=== PATIENT | male | born 1955 | race Caucasian/White ===

== ENCOUNTER 2017-07-03 12:34 | Inpatient (IN) | payer BC ==
[~2017-07-03] VITALS: Ht 177.8 cm; Wt 84.4 kg
--- NOTE | ~2017-07-03 | HC ---
[facility] [place] [address] CONSULTATION Name: ERLIN ANGELES Room #: 349-I [facility] IN ..#: [id number] Admission: 07/03/17 Attend Phys: Fany Mejía MD Discharge: 07/05/17 Date of : 55 Report #: [id number] THIS REPORT FOR: //name// CC: Kushal Mejía DATE OF SERVICE: 07/03/2017 HISTORY OF PRESENT ILLNESS: This is a 62-year-old male patient was evaluated by me for stroke. This patient's symptoms started yesterday morning. It was speech difficulty as well as weakness on the right side. They did not change much, but he did not become better and he came to the hospital. He continued to have the same problem. The symptoms are at least moderately severe. They do not fluctuate and nothing makes them better or worse. They came spontaneously without any trauma. REVIEW OF SYSTEMS: Indicate that this patient does have a pacemaker. He denies any prior history of a stroke. He was dragging his leg when this happened. He does have a history of cardiac stent placed in the past, but apparently does not have any prior history of strokes. He does have some high blood pressure for which he is taking his medication. He also has cholesterol problem, but was not any more specific than that. That was his relevant 14-point review of system. PAST MEDICAL HISTORY: Negative for any early age stroke. FAMILY HISTORY: Negative for any early age stroke. SOCIAL HISTORY: He smokes and drinks alcohol. In fact, he drinks significant amount of alcohol and smoke daily. PHYSICAL EXAMINATION: Indicate he is alert, he is responsive, he is oriented. His speech is slurred. He believes his memory and fund of knowledge is at his baseline. Cranial nerve examination 2-12 is unremarkable. He does have some weakness on the right side, but he said this going on since yesterday. There is no meningeal sign. There is no carotid bruit. I could not look at the patient's fundus. There is no edema, cyanosis or jaundice. His cardiac examinations appear mostly unremarkable. He does have some rhonchi on both sides, but no respiratory difficulty. His blood pressure is 163/74, respiration is 16, pulse is 75. LABORATORY DATA: His hemoglobin is 18.3 and his BUN and creatinine is normal. His LDL is 97. IMPRESSION: This patient's clinical presentation is consistent with left hemispheric cerebrovascular accident. It will be difficult to confirm the diagnosis as we cannot do MRI because of his pacemaker. He has significant [address] [address] CONSULTATION Name: ERLIN ANGELES Room #: 349-I [facility] IN ..#: [id number] Admission: 07/03/17 Attend Phys: Fany Mejía MD Discharge: 07/05/17 Date of : 55 Report #: [id number] problem with alcohol drinking and smoking and I expect him to withdrawal. He also has multiple other things which will complicate the issues. His hemoglobin is 18.3, so he may need some more management of that. His hematocrit is 15.7. His platelet count is trace low at 149, but I think we should be okay with that. RECOMMENDATIONS: I had a long talk with this patient. I discussed with him that he needs to stop drinking alcohol and smoking. I talked to the Emergency Room physician and suggested a banana bag and this patient should also be on lookout for withdrawal. He does need an echocardiogram because of his history of heart problems as well as what appeared to be stroke now. We will check his TSH and B12 level in this patient. He should be on aspirin and statin and they should start any feeding only after documenting that there is no swallowing difficulty. All of it was discussed with the patient in great detail. He is agreeable with this plan. Thank you very much for this referral. <ELECTRONICALLY SIGNED> By: Javid Rodriguez MD 07/05/17 1348 1806 2213 Javid Rodriguez MD /nt
--- NOTE | ~2017-07-03 | EKG ---
[place] [address] [facility] [place] [address] ELECTROCARDIOGRAM REPORT Name: ERLIN ANGELES Room #: 349-I ADM IN M.R.#: [id number] Admission: 07/03/17 Attend Phys: Fany Mejía MD Discharge: Date of : 55 Report #: [id number] THIS REPORT FOR: //name// [facility] ED Test Date: 2017-07-03 Test Time: 12:48:32 Pat Name: ERLIN ANGELES Department: Room: 349 Gender: M Olive Brine Tester: BASSEM : 1955 Requested By: Bibi Mcmillan Order Number: [id number] MD: Nabor Young Measurements Intervals [place] Rate: 69 P: 18 MS: 318 QRS: -65 QRSD: 174 T: 108 QT: 452 QTc: 485 Interpretive Statements Atrial-sensed ventricular-paced complexes No further analysis attempted due to paced rhythm Compared to ECG 07/03/2013 07:44:18 Ventricular pacing is now present Electronically Signed On 07-04-2017 8:32:46 HOME CHILD CARE PROVIDER by Nabor Young [email or web address] <ELECTRONICALLY SIGNED> By: Nabor Young MD, [facility] 07/04/17 0832 1248 1248 Nabor Young MD, [facility] /EPI
--- NOTE | ~2017-07-03 | 2DMMODE ---
[facility] [address] [place] [address] 2 D/M-MODE ECHOCARDIOGRAM Name: ERLIN ANGELES Room #: 349-I ADM IN ..#: [id number] Admission: 07/03/17 Attend Phys: Fany Mejía Discharge: Date of : 55 Date of Service: 07/04/17 1609 Report #: [id number] THIS REPORT FOR: //name// APPROVED REPORT Study performed: 07/04/2017 11:51:58 EXAM: Comprehensive 2D, Doppler, and color-flow Echocardiogram Patient Location: Bedside Room #: 349 Status: routine BSA: 2.02 HR: 65 bpm BP: 132/70 mmHg Other Information Study Quality: Adequate Indications COPD CVA/TIA Pacemaker CAD Hypertension/HDD Echo Enhancing Agent Indication: Rule out Shunt Agent(s) / Amount(s) Used: Agitated Saline 7 cc 2D Dimensions LVOT Diam: 19.94 (18-24mm) Ascending Ao: 25.67 (22-36mm) Aortic Root: 30.16 mm IVC: 20.00 mm Volumes Left Atrial Volume (Systole) Single Plane 4CH: 61.31 mL Single Plane 2CH: 60.23 mL LA ESV Index: 33.00 mL/m2 Aortic Valve AoV Peak Oniel.: 2.41 m/s AO Peak Gr.: 18.35 mmHg LVOT Max P.83 mmHg AO Mean Gr.: 12.95 mmHg LVOT Mean P.17 mmHg AO V2 Mean: 1.69 m/s LVOT Max V: 1.18 m/s AO V2 VTI: 44.44 cm LVOT Mean V: 0.83 m/s [facility] [address] [place] [address] 2 D/M-MODE ECHOCARDIOGRAM Name: ERLIN ANGELES Room #: 349-I [facility] IN [facility].#: [id number] Admission: 07/03/17 Attend Phys: Fany Mejía Discharge: Date of : 55 Date of Service: 07/04/17 1609 Report #: [id number] CAMILLE (VTI): 1.53 cm2 LVOT V1 VTI: 21.81 cm CAMILLE Vmax: 1.53 cm2 SV (LVOT): 68.05 mL Mitral Valve E/A Ratio: 0.7 MV Decel. Time: 321.54 ms MV E Max Oniel.: 0.73 m/s MV A Oniel.: 1.04 m/s MV PHT: 93.25 ms IVRT: 133.79 ms Pulmonary Valve PV Peak Oniel.: 1.18 m/s PV Peak Gr.: 5.59 mmHg Tricuspid Valve TR Peak Oniel.: 2.49 m/s TR Peak Gr.: 24.77 mmHg PA Pressure: 35.00 mmHg Left Ventricle The left ventricle is normal size. There is normal LV segmental wall motion. There is normal left ventricular wall thickness. The left ventricular systolic function is normal. The left ventricular ejection fraction is within the normal range. LVEF is 60-65%. Grade I - abnormal relaxation pattern. Right Ventricle The right ventricle is normal size. The right ventricular systolic function is normal. Pacemaker lead is present in the right ventricle. Atria Left atrium is at the upper limits of normal. No shunting seen by contrast bubble injection Right atrium is dilated. Pacemaker lead is present in the right atrium. Aortic Valve Aortic valve is calcified. No aortic regurgitation is present. Mild aortic stenosis. Calculated aortic valve area is 1.7 cm2 with maximum pressure gradient of 23 mmHg and mean pressure gradient of 13 mmHg. Mitral Valve Moderate mitral annular calcification. Trace to mild mitral regurgitation. No evidence of mitral valve stenosis. [facility] [address] [place] [address] 2 D/M-MODE ECHOCARDIOGRAM Name: ERLIN ANGELES Room #: 349-I [facility] IN [facility]#: [id number] Admission: 07/03/17 Attend Phys: Fany Mejía Discharge: Date of : 55 Date of Service: 07/04/17 1609 Report #: [id number] Tricuspid Valve The tricuspid valve is normal in structure. There is trace tricuspid regurgitation.Estimated PAP 35 mmHg. There is mild pulmonary hypertension. Pulmonic Valve The pulmonary valve is normal in structure. There is no pulmonic valvular regurgitation. Great Vessels The aortic root is normal in size. IVC is dilated and collapses >50% with inspiration. Pericardium There is no pericardial effusion. <Conclusion> The left ventricular systolic function is normal. LVEF is 60-65%. Grade I - abnormal relaxation pattern. Aortic valve is calcified, mildly stenotic Calculated aortic valve area 1.7 cm2 with maximum pressure gradient of 23 mmHg and mean pressure gradient of 13 mmHg. Moderate mitral annular calcification. Trace to mild mitral regurgitation. Pulmonary artery pressure of 35mmHg There is no pericardial effusion. <ELECTRONICALLY SIGNED> By: Nabor Young MD, FACC 07/04/17 1609 160 160 Nabor Young MD, FACC /INF
[~2017-07-03 12:34] MED LIST: ASPIRIN81 M2; KEFLEX500 MG PO; NITROGLYCERIN0.4 MG; PAIN & FEVER325 MG PO; PERCOCET 5-3251 EACH PO; VENTOLIN HFA INH8 GM
[2017-07-03 12:37] VITALS: BP 165/98
[2017-07-03 13:43] LABS: BASOPHILS 0.4 % (0.0-2.0); EOSINOPHILS 0.2 % (0.0-3.0); HEMATOCRIT 52.7 % (42.0-52.0); HEMOGLOBIN 18.3 gm/dL (14.0-18.0); LYMPHOCYTES 25.1 % (24.0-44.0); MANUAL DIFF NO; MCH 31.4 pg (26.0-34.0); MCHC 34.6 g/dL (28.0-37.0); MCV 90.6 fL (80.0-100.0); MONOCYTES 5.4 % (1.0-8.0); PLATELET COUNT 149 thou/uL (150-400); POLYS 68.9 % (36.0-66.0); RBC 5.82 mil/uL (4.50-6.00); RDW 13.7 % (10.5-14.5); WBC 8.8 thou/uL (4.0-11.0)
[2017-07-03 13:46] LABS: ANION GAP 10 mmol/L (7-16); BUN 8 mg/dL (7-18); CALCIUM 9.5 mg/dL (8.5-10.1); CHLORIDE 99 mmol/L (98-107); CO2 25 mmol/L (21-32); CREATININE 0.8 mg/dL (0.7-1.3); GLUCOSE 129 mg/dL (74-106); POTASSIUM 4.3 mmol/L (3.5-5.1); SODIUM 134 mmol/L (136-145)
[2017-07-03 13:52] LABS: URINE BILIRUBIN NEGATIVE (Negative); URINE BLOOD NEGATIVE (Negative); URINE COLOR YELLOW; URINE GLUCOSE-RANDOM* NEGATIVE (Negative); URINE KETONES NEGATIVE (Negative); URINE NITRITE NEGATIVE (Negative); URINE PROTEIN (DIPSTICK) NEGATIVE (Negative); URINE SPECIFIC GRAVITY <= 1.005 (1.005-1.035); URINE UROBILINOGEN 0.2 E.U./dl (0.2-1.0)
[2017-07-03 13:55] LABS: ALBUMIN 3.8 g/dL (3.4-5.0); ALKALINE PHOSPHATASE 49 U/L (46-116); SGOT 34 U/L (15-37); SGPT 35 U/L (30-65); TOTAL BILIRUBIN 0.5 mg/dL (<0.1-1.0); TOTAL PROTEIN 7.7 g/dL (6.4-8.2); TROPONIN-I < 0.04 ng/mL (<0.06)
[2017-07-03 13:57] LABS: INR 1.1; PROTIME 11.6 Seconds (9.3-11.4)
[2017-07-03 15:05] VITALS: BP 145/81
[2017-07-03 17:07] LABS: CHOLESTEROL 195 mg/dL (<200); HDL CHOLESTEROL 84 mg/dL (>40); LDL CHOLESTEROL 97 mg/dL (<100); TC:HDL 2.3 Ratio (Not establshd); TRIGLYCERIDE 70 mg/dL (<150); VLDL 14 mg/dL (<40)
[2017-07-03 19:20] VITALS: BP 166/83
[2017-07-03 20:00] VITALS: BP 157/71
[2017-07-03] MEDS ORDERED: OXYCODONE-ACET1 EAC2 PO (23:07)
[2017-07-04 00:05] VITALS: BP 133/74
[2017-07-04 04:21] VITALS: BP 154/84
[2017-07-04 06:37] LABS: HEMATOCRIT 50.7 % (42.0-52.0); HEMOGLOBIN 17.4 gm/dL (14.0-18.0); MCH 31.3 pg (26.0-34.0); MCHC 34.3 g/dL (28.0-37.0); MCV 91.1 fL (80.0-100.0); RBC 5.57 mil/uL (4.50-6.00); RDW 13.4 % (10.5-14.5); WBC 10.1 thou/uL (4.0-11.0)
[2017-07-04 06:48] LABS: CALCIUM 9.7 mg/dL (8.5-10.1); CREATININE 0.7 mg/dL (0.7-1.3); POTASSIUM 4.6 mmol/L (3.5-5.1)
[2017-07-04 08:00] VITALS: BP 132/70
[2017-07-04 12:00] VITALS: BP 142/73
[2017-07-04 16:00] VITALS: BP 155/72
[2017-07-04 19:30] VITALS: BP 140/63
[2017-07-05 03:45] VITALS: BP 136/78
[2017-07-05 07:39] VITALS: BP 155/79
[2017-07-05] MEDS ORDERED: LIPITOR10 MG PO (09:16)
[2017-07-05] MEDS ORDERED: LISINOPRIL10 MG PO (09:17)
[2017-07-05] MEDS ORDERED: ADULT LOW DOSE81 MG PO (09:17)
[2017-07-05 10:01] VITALS: BP 155/79
== END 2017-07-05 11:43 | disposition home or self-care (01) | DRG 65 ==
LOC: ER 12:34 → EROBS 15:43 → 3W 15:43 → ENTRNSPT 07-05 11:24 → EDTRNSPTSTS 07-05 11:30 → 3W 07-05 11:43
PROVIDERS: Internal Medicine; Nurse Practitioner Family
DX: I63.9 Cerebral infarction, unspecified (principal); F10.239 Alcohol dependence with withdrawal, unspecified; I10 Essential (primary) hypertension; F17.210 Nicotine dependence, cigarettes, uncomplicated; F32.9 Major depressive disorder, single episode, unspecified; J44.9 Chronic obstructive pulmonary disease, unspecified; I25.10 Atherosclerotic heart disease of native coronary artery without angina pectoris; Z79.82 Long term (current) use of aspirin; Z79.899 Other long term (current) drug therapy; Z95.5 Presence of coronary angioplasty implant and graft
CPT/HCPCS: 10879

== ENCOUNTER → 2018-07-31 | Outpatient (CLI) | payer BC ==
[~2018-07-31] MED LIST changes: +ADULT LOW DOSE81 MG PO; +ASPIR 8181 MG PO; +CYCLOBENZAPRINE5 MG PO; +LIPITOR10 MG PO; +LISINOPRIL10 MG PO; +NEURONTIN 300300 M1 PO; +NITROGLYCERIN0.4 MG SUBLING; +OXYCODONE-ACET1 EAC2 PO; +PLAVIX 75 MG TA75 M1 PO; +TOPROL XL50 MG PO; +UNICOMPLEX M TA1 TA1 PO; +VENTOLIN HFA 1818 GM INH; +XANAX 0.5 MG0.5 MG PO
--- NOTE | 2018-07-31 13:58 | EKG ---
[address] [address] ELECTROCARDIOGRAM REPORT Name: ERLIN ANGELES Room #: REG CL Nayeli#: [id number] Admission: 07/31/18 Attend Phys: Contreras Seymour MD Discharge: Date of : 55 Report #: [id number] THIS REPORT FOR: //name// [facility] Test Date: 2018-07-31 Test Time: 10:22:52 Pat Name: ERLIN ANGELES Department: Room: Gender: M Embedded Linux Engineer: TIA BAILEY : 1955 Requested By: Contreras Seymour Order Number: [id number] MD: Andre David Measurements Intervals [place] Rate: 62 P: -46 MO: 317 QRS: -67 QRSD: 171 T: 114 QT: 470 QTc: 478 Interpretive Statements Atrial-sensed ventricular-paced rhythm No further analysis attempted due to paced rhythm Compared to ECG 07/03/2017 12:48:32 No significant changes Electronically Signed On 07-31-2018 13:58:13 PAYROLL ANALYST by Andre David [email or web address] <ELECTRONICALLY SIGNED> By: Andre David MD 07/31/18 1358 1022 1022 Andre David MD /EPI
== END ==
LOC: ULTRA 08:53
DX: Z01.818 Encounter for other preprocedural examination (principal); I25.10 Atherosclerotic heart disease of native coronary artery without angina pectoris

== ENCOUNTER 2018-08-07 05:22 | Inpatient (IN) | payer BC ==
[2018-07-31 10:31] LABS: ABSOLUTE NEUTROPHILS 4.6 thou/uL (1.4-8.2); BASOPHILS 0.5 % (0.0-2.0); EOSINOPHILS 0.4 % (0.0-3.0); HEMATOCRIT 50.6 % (42.0-52.0); HEMOGLOBIN 17.3 gm/dL (14.0-18.0); LYMPHOCYTES 30.4 % (24.0-44.0); MCH 31.7 pg (26.0-34.0); MCHC 34.2 g/dL (28.0-37.0); MCV 92.7 fL (80.0-100.0); MONOCYTES 8.1 % (1.0-8.0); PLATELET COUNT 149 thou/uL (150-400); POLYS 60.6 % (36.0-66.0); RBC 5.46 mil/uL (4.50-6.00); RDW 13.8 % (10.5-14.5); WBC 7.6 thou/uL (4.0-11.0)
[2018-07-31 10:45] LABS: APTT 30.8 Seconds (24.5-32.8); PROTIME 10.1 Seconds (9.3-11.4)
[2018-07-31 11:03] LABS: ALBUMIN 3.7 g/dL (3.4-5.0); CALCIUM 9.2 mg/dL (8.5-10.1); CREATININE 0.7 mg/dL (0.7-1.3); POTASSIUM 4.2 mmol/L (3.5-5.1); TOTAL BILIRUBIN 0.3 mg/dL (<0.1-1.0); TOTAL PROTEIN 7.2 g/dL (6.4-8.2)
[2018-07-31 11:20] LABS: URINE BILIRUBIN NEGATIVE (Negative); URINE BLOOD NEGATIVE (Negative); URINE CLARITY CLEAR; URINE COLOR YELLOW; URINE GLUCOSE-RANDOM* NEGATIVE (Negative); URINE KETONES NEGATIVE (Negative); URINE LEUKOCYTES-REFLEX NEGATIVE (Negative); URINE NITRITE-REFLEX NEGATIVE (Negative); URINE PROTEIN (DIPSTICK) NEGATIVE (Negative); URINE SPECIFIC GRAVITY <= 1.005 (1.005-1.035); URINE UROBILINOGEN 0.2 E.U./dl (0.2-1.0)
[2018-07-31 19:10] LABS: GLYCOHEMOGLOBIN (HGB A1C) 6.7 % (4.8-5.6)
[2018-08-07] VITALS (8 sets, daily range): BP systolic 75–168; BP diastolic 40–79
[~2018-08-07] VITALS: Ht 177.8 cm; Wt 83.5 kg
--- NOTE | 2018-08-07 10:15 | HC ---
[facility] [place] [address] CONSULTATION Name: ERLIN ANGELES Room #: 150-1 ADM IN M.R.#: [id number] Admission: 08/07/18 Attend Phys: Contreras Seymour MD Discharge: Date of : 55 Report #: [id number] THIS REPORT FOR: //name// CC: Ted Navarro REASON FOR CONSULTATION: Coronary artery disease. HISTORY OF PRESENT ILLNESS: The patient is a 63-year-old gentleman with a history of hypertension, diabetes, tobacco dependency, peripheral disease with intervention, heart block with prior [employer] pacemaker implantation and complex coronary artery disease. He has had progressive angina and a recent angiography demonstrating severe progression of his disease, for which he is now being admitted for coronary bypass grafting. He has a history of normal left ventricular systolic function with mild aortic stenosis and mild mitral insufficiency. His coronary interventions date back to 2004. He has undergone interventions in 2007, on 2 occasions, 2008, 2014, with his most recent angiogram in 05/2018. He denies heart failure symptoms including orthopnea, paroxysmal nocturnal dyspnea or lower extremity edema. His right leg pain is substantially improved following peripheral revascularization. He is actively trying to quit smoking. ALLERGIES: No known drug allergies. MEDICATIONS: Aspirin, atorvastatin 40 mg daily, gabapentin 300 mg 3 times a day, lisinopril 40 mg daily, Toprol-XL 50 mg daily, metformin 500 mg twice daily and nitroglycerin. PAST MEDICAL HISTORY: Medical records have been reviewed and include history of diabetes, hypertension, dyslipidemia, peripheral vascular disease, prior stroke. SOCIAL HISTORY: He is an ongoing smoker. FAMILY HISTORY: Notable for father who of coronary artery disease at age of 47. Mother and brother with diabetes. REVIEW OF SYSTEMS: All systems negative except as that noted above. PHYSICAL EXAMINATION: GENERAL: A pleasant gentleman in no distress. VITAL SIGNS: Blood pressure is 160/70, heart rate is 70 and regular, respirations unlabored at 18. HEENT: There are neither xanthelasma, subcutaneous xanthomata, oral mucosal or digital cyanosis or kyphoscoliosis present. CHEST: Clear to auscultation and percussion. [facility] [place] [place] [address] [place] [address] CONSULTATION Name: ERLIN ANGELES Room #: 150-1 ADM IN M.R.#: [id number] Admission: 08/07/18 Attend Phys: Contreras Seymour MD Discharge: Date of : 55 Report #: [id number] CARDIOVASCULAR: Regular rate and rhythm with normal S1, S2. No murmurs or rubs. There is a soft systolic murmur at the base. ABDOMEN: Soft and nontender. EXTREMITIES: Without cyanosis, clubbing or edema. Radial pulses are 2+. NEUROLOGIC: He is alert with a nonfocal exam. LABORATORY DATA: Sodium 137, potassium 4.2, creatinine is 0.7. Troponin 0. White count 7.6, hemoglobin 17.3, platelet count 149. Chest x-ray demonstrates right basilar atelectasis. Carotid ultrasound demonstrates no significant carotid disease. EKG: AV sequential pacing. IMPRESSION: 1. Coronary artery disease with progressive exertional angina. 2. Hypertension. 3. Diabetes. 4. Dyslipidemia. 5. Heart block with prior [employer] pacemaker implantation. 6. Tobacco dependency. RECOMMENDATIONS: 1. Continued aggressive risk factor modification. 2. Coronary surgical revascularization is planned. I will follow along with you. 3. Tobacco cessation encouraged. <ELECTRONICALLY SIGNED> By: Nabor Young MD, [facility] 08/07/18 1015 0817 0911 Nabor Young MD, [facility] /nt
[2018-08-07 12:45] LABS: HEMATOCRIT 35.5 % (42.0-52.0); MCHC 34.8 g/dL (28.0-37.0); MCV 92.2 fL (80.0-100.0); RBC 3.85 mil/uL (4.50-6.00); RDW 13.4 % (10.5-14.5); WBC 22.1 thou/uL (4.0-11.0)
[2018-08-07 12:58] LABS: HEMOGLOBIN 12.3 gm/dL (14.0-18.0)
[2018-08-07 13:06] LABS: APTT 29.4 Seconds (24.5-32.8); FIBRINOGEN 175.3 mg/dL (210-360); INR 1.2
[2018-08-07 13:07] LABS: PROTIME 12.9 Seconds (9.3-11.4)
[2018-08-07 13:35] LABS: POC BE -1 mmol/L (-2.0 to +3.0); POC CA IONIZED 4.7 mg/dL (4.5-5.3); POC GLUCOSE 157 mg/dL (70-99); POC HCO3 25.4 mmol/L (22.0-26.0); POC HEMOGLOBIN 16.7 g/dL (14.0-18.0); POC POTASSIUM 4.3 mmol/L (3.5-5.1); POC SODIUM 136 mmol/L (136-145); POC pCO2 49.7 mmHg (35.0-45.0); POC pH 7.316 (7.360-7.450)
[2018-08-07 13:35] LABS: POC BE -2 mmol/L (-2.0 to +3.0); POC CA IONIZED 4.5 mg/dL (4.5-5.3); POC GLUCOSE 175 mg/dL (70-99); POC HCO3 23.5 mmol/L (22.0-26.0); POC HEMOGLOBIN 12.9 g/dL (14.0-18.0); POC POTASSIUM 3.8 mmol/L (3.5-5.1); POC SODIUM 137 mmol/L (136-145); POC pCO2 42.2 mmHg (35.0-45.0); POC pH 7.353 (7.360-7.450)
[2018-08-07 13:35] LABS: POC BE -2 mmol/L (-2.0 to +3.0); POC CA IONIZED 4.2 mg/dL (4.5-5.3); POC GLUCOSE 157 mg/dL (70-99); POC HEMOGLOBIN 12.9 g/dL (14.0-18.0); POC SODIUM 136 mmol/L (136-145); POC pCO2 47.5 mmHg (35.0-45.0); POC pH 7.312 (7.360-7.450)
[2018-08-07 13:35] LABS: POC BE 0 mmol/L (-2.0 to +3.0); POC CA IONIZED 4.7 mg/dL (4.5-5.3); POC GLUCOSE 123 mg/dL (70-99); POC HCO3 26.1 mmol/L (22.0-26.0); POC HEMOGLOBIN 13.6 g/dL (14.0-18.0); POC POTASSIUM 4.1 mmol/L (3.5-5.1); POC SODIUM 140 mmol/L (136-145)
[2018-08-07 13:35] LABS: POC BE -1 mmol/L (-2.0 to +3.0); POC CA IONIZED 4.5 mg/dL (4.5-5.3); POC GLUCOSE 153 mg/dL (70-99); POC HCO3 25.2 mmol/L (22.0-26.0); POC HEMOGLOBIN 16.7 g/dL (14.0-18.0); POC POTASSIUM 4.2 mmol/L (3.5-5.1); POC SODIUM 136 mmol/L (136-145); POC pCO2 46.4 mmHg (35.0-45.0); POC pH 7.343 (7.360-7.450)
[2018-08-07 13:35] LABS: POC BE 1 mmol/L (-2.0 to +3.0); POC CA IONIZED 4.1 mg/dL (4.5-5.3); POC GLUCOSE 155 mg/dL (70-99); POC HCO3 25.8 mmol/L (22.0-26.0); POC HEMOGLOBIN 10.9 g/dL (14.0-18.0); POC POTASSIUM 4.1 mmol/L (3.5-5.1); POC SODIUM 136 mmol/L (136-145); POC pCO2 43.1 mmHg (35.0-45.0); POC pH 7.386 (7.360-7.450)
[2018-08-07 13:35] LABS: POC BE -2 mmol/L (-2.0 to +3.0); POC CA IONIZED 4.1 mg/dL (4.5-5.3); POC GLUCOSE 164 mg/dL (70-99); POC HCO3 23.1 mmol/L (22.0-26.0); POC HEMOGLOBIN 11.6 g/dL (14.0-18.0); POC POTASSIUM 4.3 mmol/L (3.5-5.1); POC SODIUM 137 mmol/L (136-145); POC pCO2 39.2 mmHg (35.0-45.0); POC pH 7.378 (7.360-7.450)
[2018-08-07 13:35] LABS: POC BE 0 mmol/L (-2.0 to +3.0); POC CA IONIZED 4.2 mg/dL (4.5-5.3); POC GLUCOSE 160 mg/dL (70-99); POC HCO3 25.6 mmol/L (22.0-26.0); POC HEMOGLOBIN 12.9 g/dL (14.0-18.0); POC POTASSIUM 4.1 mmol/L (3.5-5.1); POC SODIUM 136 mmol/L (136-145); POC pCO2 47.1 mmHg (35.0-45.0); POC pH 7.344 (7.360-7.450)
[2018-08-07 13:35] LABS: POC BE 0 mmol/L (-2.0 to +3.0); POC CA IONIZED 4.8 mg/dL (4.5-5.3); POC GLUCOSE 137 mg/dL (70-99); POC HCO3 25.3 mmol/L (22.0-26.0); POC HEMOGLOBIN 11.6 g/dL (14.0-18.0); POC POTASSIUM 3.6 mmol/L (3.5-5.1); POC SODIUM 139 mmol/L (136-145); POC pCO2 43.9 mmHg (35.0-45.0); POC pH 7.368 (7.360-7.450)
[2018-08-07 14:14] LABS: BE(vivo) -5.5 mmol/L (-2 to +3); HCO3 23.6 mmol/L (22.0-26.0); PCO2 61.6 mmHg (35.0-45.0); PO2 91.4 mmHg (80.0-100.0); pH 7.202 (7.360-7.450)
--- NOTE | 2018-08-07 14:37 | NUR ---
PT ARRIVED FROM OR TO ROOM 238 S/P CABG X 5 @ 1355. PT ON VENT. ACCOMPANIED BY DR ERICKSON AND OSORIO. PT HOOKED TO ROOM MONITORS. ART LINE HOOKED UP. VIGILANT MONITOR ATTACHED. CT TO SUCTION. YESICA TO DD. PT ON PROPOFOL AND CARDENE GTT. ALBUMIN INITIATED
[2018-08-07 16:11] LABS: BE(vivo) -8.3 mmol/L (-2 to +3); HCO3 17.7 mmol/L (22.0-26.0); PO2 126.9 mmHg (80.0-100.0); pH 7.285 (7.360-7.450); sO2 98.2 % (92.0-98.0)
[2018-08-07 16:27] LABS: HEMATOCRIT 43.6 % (42.0-52.0); MCH 31.7 pg (26.0-34.0); MCHC 33.9 g/dL (28.0-37.0); MCV 93.5 fL (80.0-100.0); RBC 4.67 mil/uL (4.50-6.00); RDW 13.7 % (10.5-14.5); WBC 25.9 thou/uL (4.0-11.0)
[2018-08-07 16:28] LABS: HEMOGLOBIN 14.8 gm/dL (14.0-18.0)
[2018-08-07 16:30] LABS: CALCIUM 8.4 mg/dL (8.5-10.1); CREATININE 0.8 mg/dL (0.7-1.3); MAGNESIUM 2.7 mg/dL (1.8-2.4); POTASSIUM 4.6 mmol/L (3.5-5.1)
[2018-08-07 16:40] LABS: APTT 31.7 Seconds (24.5-32.8); INR 1.1; PROTIME 11.4 Seconds (9.3-11.4)
[2018-08-07 18:08] LABS: CALCIUM 7.7 mg/dL (8.5-10.1); CREATININE 0.8 mg/dL (0.7-1.3); POTASSIUM 3.9 mmol/L (3.5-5.1)
[2018-08-07 18:14] LABS: PHOSPHORUS 2.8 mg/dL (2.5-4.9); TOTAL BILIRUBIN 0.9 mg/dL (<0.1-1.0); TOTAL PROTEIN 5.9 g/dL (6.4-8.2)
[2018-08-07 18:51] LABS: FOLIC ACID 9.7 ng/mL (8.6-58.9)
--- NOTE | 2018-08-07 19:17 | NUR ---
PT AWOKE WHILE ON PROPOFOL AND VERY RESTLESS, NOT FOLLOWING COMMANDS. DR BANSAL NOTIFIED AND ORDER FOR PRECEDEX OBTAINED AND ADDED TO PROPOFOL. DR BANSAL ARRIVED AT BEDSIDE AND STAYED WHILE PT CONT TO BE VERY RESTLESS. CIWA PROTOCOL INITIATED. DAWIT SOFT WRIST RESTRAINTS APPLIED. MULTIPLE PRN AND MEDICATION ADJUSTMENTS MADE WITH DR BANSAL ORDERS TO SEDATE THE PT. WITH SEDATIVE CHANGES BP DROPPED AND PT WAS ADDED ON UNIQUE AND THEN CHANGED TO LEVOPHED. PT ULTIMATELY SETTLED DOWN WITH VERSED GTT AND LEVO FOR BP SUPPORT. INSULIN GTT TITRATED PER BLOOD SUGARS (SEE FLOW SHEET). PT'S AND BROTHER UPDATED REGARDING PT STATUS AND POC GOALS.
[2018-08-07 22:15] LABS: BE(vivo) -5.2 mmol/L (-2 to +3); HCO3 18.9 mmol/L (22.0-26.0); PCO2 32.3 mmHg (35.0-45.0); pH 7.385 (7.360-7.450); sO2 97.9 % (92.0-98.0)
[2018-08-07 23:29] LABS: BE(vivo) -2.9 mmol/L (-2 to +3); PCO2 39.1 mmHg (35.0-45.0); PO2 89.2 mmHg (80.0-100.0); pH 7.369 (7.360-7.450); sO2 96.6 % (92.0-98.0)
[2018-08-08] VITALS (20 sets, daily range): BP systolic 84–193; BP diastolic 49–87
[2018-08-08 05:37] LABS: MCH 31.3 pg (26.0-34.0); MCHC 33.9 g/dL (28.0-37.0); MCV 92.3 fL (80.0-100.0); RBC 3.46 mil/uL (4.50-6.00); RDW 13.6 % (10.5-14.5); WBC 14.7 thou/uL (4.0-11.0)
[2018-08-08 05:40] LABS: CALCIUM 8.4 mg/dL (8.5-10.1); CREATININE 0.7 mg/dL (0.7-1.3); MAGNESIUM 2.4 mg/dL (1.8-2.4); POTASSIUM 4.3 mmol/L (3.5-5.1)
[2018-08-08 05:44] LABS: HEMOGLOBIN 10.8 gm/dL (14.0-18.0)
--- NOTE | 2018-08-08 06:38 | NUR ---
Pt progressing well and more alert this am. PRN fentanyl and hydrocodones given for c/o chest "soreness" with desired effect achieved. Remains on low dose levophed gtt for BP maintenance and precedex gtt turned off. Large amount of mediastinal chest tube drainage for shift and new atrium in place. Hourly urine output remains adequate. Am lab results noted and update called to Dr. Seymour. Continue with POC.
--- NOTE | 2018-08-08 08:13 | EKG ---
[address] [place] [address] ELECTROCARDIOGRAM REPORT Name: ERLIN ANGELES EIRCK Room #: 238-P ADM IN M.R.#: [id number] Admission: 08/07/18 Attend Phys: Contreras Seymour MD Discharge: Date of : 55 Report #: [id number] THIS REPORT FOR: //name// [facility] Test Date: 2018-08-08 Test Time: 07:49:43 Pat Name: ERLIN ANGELES Department: Room: 238 P Gender: M Nuclear Monitoring Technician: CHAPIN : 1955 Requested By: Contreras Seymour Order Number: [id number] MD: Nabor Young Measurements Intervals [place] Rate: 69 P: -53 PA: 266 QRS: -63 QRSD: 170 T: 107 QT: 481 QTc: 516 Interpretive Statements Sinus rhythm with ventricular pacing Compared to ECG 07/31/2018 10:22:52 no significant change was found Electronically Signed On 08-08-2018 8:13:24 LANDCARE OFFICER by Nabor Young [email or web address] <ELECTRONICALLY SIGNED> By: Nabor Young MD, [facility] 08/08/18 0813 0749 0749 Nabor Young MD, FAC /EPI
--- NOTE | 2018-08-08 09:00 | NUR ---
RD consult received. S/P CABG 08/07. +tobacco, +etoh, dm, CAD, HTN. Will follow up for any diet education needs once transferred out of ICU.
--- NOTE | 2018-08-08 14:47 | NUR ---
CM ASSESSMENT: CASE OPENED FOR DC PLANNING. CLINICAL INFO REVIEWED. PT IS POD #1 CABG. MET WITH PT WHO IS ALERT AND ORIENTED X4. PT LIVES IN [place] WITH SPOUSE SIGRID. BOTH WORK FT. PT WORKS IN SECURITY AT [employer]. PT AND SPOUSE SHARE IADLS DUTIES. NO DEM OR PREVIOUS HH. PCP IS KAREN FULTON. PT ADMITS TO DAILY ETOH CONSUMPTION, STATES ETOH NOT A PROBLEM FOR HIM AND DECLINED RESOURCES FOR ANY TYPE OF TREATMENT. ETOH RESOURCE NUMBERS PLACED ON DC SUMMARY. THERAPY EVAL BEGAN TODAY, LIKELY DC HOME NO NEEDS. CM AVAILABLE TO ASSIST WITH COORDINATION OF DC NEEDS PRN.
[2018-08-08 17:51] LABS: BE(vivo) 3.6 mmol/L (-2 to +3); pH 7.527 (7.360-7.450); sO2 89.3 % (92.0-98.0)
[2018-08-08 17:52] LABS: PO2 49.3 mmHg (80.0-100.0)
--- NOTE | 2018-08-08 18:11 | NUR ---
pt hypertensive this afternoon. call placed to dr. yarbrough, started po lisinopril. no change. spoke with physicain again, new orders for b/p management. Dr. hidalgo at bed side to assess patient. abg's drawn, lactate drawn, orders for CTA chest and ultrasound right lower extremity.
--- NOTE | 2018-08-08 18:12 | NUR ---
ASSUMED CARE 0700 AFTER RECEIVING REPORT FROM FRANKIE RN - PT MILDLY AGITATED - ABLE TO TITRATE OFF LEVOPHED - DISCONTINUED INSULIN GTT - PT UP OOB TODAY - ATE SMALL AMOUNT OF LUNCH - FAMILY AT BEDSIDE DURING THAT PERIOD - BACK TO BED /S DIFFICULTY - LATTER PART OF SHIFT PT BECAME AGITATE - CW INCREASED - VS BECAME UNSTABLE - DR. MARTINI UPDATED - ORDERS RECEIVED - OFF UNIT TO HAVE ABDOMINAL CT @ 1820
--- NOTE | 2018-08-08 19:00 | NUR ---
ASSUMED CARE OF THIS PT AT THIS TIME. HE JUST GOT BACK FROM CT SCAN. HE IS APPEARS TO BE IN DISTRESS. RR IN 30'S. O2 SAT 90% ON 9 LITERS OF OXYGEN. HIS LUNG SOUND VERY COARSE ,RHONCHI T/O. HE HAS VERY GOOD COUGH. ABLE TO EXPECTORATED VERY THICK WHITE SPUTUM NOTED. HE IS C/O OF PAIN WITH COUGH OR TAKING A DEEP BREATHING. WILL MANAGE HIS PAIN AND WORKING ON PULMONARY TOILET AND AIRWAY CLEARANCE WITH HIM. CT RESULT IS PENDING AT THIS TIME.
--- NOTE | 2018-08-08 19:56 | NUR ---
PAIN CONTROL HAS IMPROVE AFTER PAIN MED. HE HAS BEEN ABLE TO CLEAR HIS SECRETION MUCH BETTER. RN ASSISTED WITH ORALLY SUCTIONING AT TIMES. WORK OF BREATH HAS BEEN LESS. RR IN 20'S. O2 SAT 98% ON 5 LITERS. I/S [address] CHEST/ABD IS NEGATIVE FOR PE. AWAITING FOR HIS U/S OF HIS LE. WILL CALL RESULT TO ONCE IT AVAILABLE.
--- NOTE | 2018-08-08 20:18 | NUR ---
UPDATES REGARDING OF CURRENT PT'S CONDITIONS AND TEST. NO NEW ORDER AT THIS TIME.
--- NOTE | 2018-08-08 22:50 | NUR ---
PT WITH HX OF ETOH ABUSED. HE HAS BEEN DRINKING 8-9 BEERS PER DAY ACCORDING TO PT. LAST DRANK WAS 08/06/18. HIS CIWA WENT UP TO 14 UPON MY LAST ASSESSMENT. HE IS MORE RESTLESS AND NOT AWARED OF HIS CTs OR LINES. HIGH RISK OF SELF INJURY. WILL PLACE HIM BACK ON RESTRAINT AT THIS TIME. NOTIFIED EVERETTE MEAD SIGN POSTER; ORDER FOR RESTRAIT OBTAIN. WILL MONITOR HIM CLOSELY.
--- NOTE | 2018-08-09 00:24 | NUR ---
Pt's called for an updates. I also informed her that pt is currently on wrist restraint due to increased more confusion and attempted to pull out his lines/tubes. Will continue to monitor him closely.
--- NOTE | 2018-08-09 00:50 | NUR ---
Pt became very agitated once I hold off precedex gtt due to hypotension. CIWA 18. Gave 1 mg of ativan IVP with very little result. He is continue to be very agitated. His ABP came up to 120's to 140's . He is seems to be response better with precedex gtt. Will re-start precedex gtt.
[2018-08-09 01:18] VITALS: BP 106/65
[2018-08-09 04:47] LABS: HEMATOCRIT 29.1 % (42.0-52.0); HEMOGLOBIN 10.2 gm/dL (14.0-18.0); MCH 32.3 pg (26.0-34.0); MCHC 34.9 g/dL (28.0-37.0); MCV 92.6 fL (80.0-100.0); RBC 3.14 mil/uL (4.50-6.00); RDW 13.5 % (10.5-14.5); WBC 12.9 thou/uL (4.0-11.0)
[2018-08-09 04:56] LABS: CALCIUM 8.7 mg/dL (8.5-10.1); CREATININE 0.7 mg/dL (0.7-1.3); MAGNESIUM 2.1 mg/dL (1.8-2.4); POTASSIUM 3.6 mmol/L (3.5-5.1)
[2018-08-09 05:14] VITALS: BP 97/59
--- NOTE | 2018-08-09 05:46 | NUR ---
Pt remains calm with low dose of precedex gtt. Refused deep breathing, coughing and I/S since midnight. His lung remain very coarse t/o. Still able to maintain his O2 sat. On low dose of levophed. No complication indicates. Not making any progress in this shift.
[2018-08-09 09:54] VITALS: BP 87/53
--- NOTE | 2018-08-09 11:00 | NUR ---
DR. CINTRON PAGED RE PT UTILIZING 12MCG/MIN OF LEVOPHED. GENERAL UPDATE GIVEN. NO NEW ORDERS.
--- NOTE | 2018-08-09 19:31 | NUR ---
END OF SHIFT NOTE. PT WITH AIR LEAK TO L MS CT. AWARE. WEANED OFF LEVOPHED. TOLORATING LIQUIDS. DRESSING CHANGED. ALERT AND ORIENTED.
[2018-08-10 00:34] VITALS: BP 121/70
[2018-08-10 01:00] VITALS: BP 114/71
[2018-08-10 02:00] VITALS: BP 119/52
[2018-08-10 05:52] LABS: HEMATOCRIT 29.5 % (42.0-52.0); HEMOGLOBIN 10.2 gm/dL (14.0-18.0); MCH 31.8 pg (26.0-34.0); MCHC 34.7 g/dL (28.0-37.0); MCV 91.6 fL (80.0-100.0); RBC 3.22 mil/uL (4.50-6.00); RDW 13.4 % (10.5-14.5); WBC 12.9 thou/uL (4.0-11.0)
[2018-08-10 05:59] LABS: CALCIUM 8.5 mg/dL (8.5-10.1); CREATININE 0.6 mg/dL (0.7-1.3); MAGNESIUM 1.9 mg/dL (1.8-2.4); POTASSIUM 3.5 mmol/L (3.5-5.1)
--- NOTE | 2018-08-10 09:10 | O ---
[facility] [place] [address] OPERATIVE REPORT Name: ERLIN ANGELES Room #: 238-P [facility] IN M.R.#: [id number] Admission: 08/07/18 Attend Phys: Contreras Seymour MD Discharge: Date of : 55 Report #: [id number] THIS REPORT FOR: //name// CC: Ted Navarro DATE OF SERVICE: 08/07/2018 PREOPERATIVE DIAGNOSIS: Coronary artery disease. POSTOPERATIVE DIAGNOSIS: Coronary artery disease. OPERATION: Coronary artery bypass x 5 including left internal mammary artery to left anterior descending artery, saphenous vein to diagonal and marginal, saphenous vein to posterior descending and posterolateral branch, and endoscopic harvest right greater saphenous vein. SURGEON: Contreras Seymour MD GARDE MANAGER: ELIZA Garcia ANESTHESIA: General. INDICATIONS: The patient is a 63-year-old seen for Dr. Young. The patient has important coronary artery disease and has peripheral vascular disease. Dr. Dudley was able to recanalize the right superficial femoral artery, but the left is occluded. Coronary arteriogram demonstrates important 3-vessel disease including in-stent stenosis of a circumflex marginal, high-grade LAD disease and diffuse right coronary stenosis extending into the distal branches. Left ventricular function is satisfactory overall. FINDINGS AND TECHNIQUE: After general anesthesia was established, saphenous vein was harvested using an endoscopic approach and prepared for use as a conduit. Exposure was obtained through median sternotomy. Left internal mammary artery was harvested. Pericardial well was made. Cannulation sutures were placed. Heparin was given. Aorta was cannulated. Right atrium was cannulated. Cardioplegia needle was positioned in the aortic root. Retrograde cardioplegic catheter was placed in coronary sinus. Cardiopulmonary bypass was established. The aorta was cross clamped. Antegrade and retrograde cardioplegia were given. Ice was poured into the pericardial well. The heart was stopped. During electromechanical arrest, the distal anastomoses were performed and end-to-side anastomosis was made between vein and the posterolateral branch of the right coronary. Cold cardioplegia was given. Same segment of vein was sewn [facility] [address] [place] [address] OPERATIVE REPORT Name: ERLIN ANGELES Room #: 238-P ADM IN M.R.#: [id number] Admission: 08/07/18 Attend Phys: Contreras Seymour MD Discharge: Date of : 55 Report #: [id number] in end-to-side fashion to posterior descending artery. Cold cardioplegia was given. Separate segment of vein was sewn in end-to-side fashion to the marginal artery. Cold cardioplegia was given. Same segment of vein was sewn in jlyj-bs-oyag fashion to the large diagonal artery. Cold cardioplegia was given. Left internal mammary artery was sewn in end-to-side fashion to left anterior descending artery. Patency of this vessel was checked with the temperature technique. Cold cardioplegia was given. Two proximal anastomoses were performed. When these were complete, warm retrograde cardioplegia was given, followed by warm continuous blood to the coronary sinus. When this infusion was complete, the crossclamp was removed, de-airing maneuvers were performed, the anastomoses were inspected and found to be satisfactory. As the patient warmed, nice cardiac activity resumed, chest tubes and pacing wires were placed, a marker was placed around the proximal anastomoses. When the patient was warmed, he was weaned from cardiopulmonary bypass. Venous cannula was removed. Protamine was given, the aortic cannula was removed. Flows were measured in the bypass grafts. Hemostasis was satisfactory, chest was irrigated with antibiotic solution and closed in the usual fashion. The patient was taken to the Intensive Care Unit in good condition, having tolerated the procedure well. All counts were reported as correct. <ELECTRONICALLY SIGNED> By: Contreras Seymour MD 08/10/18 0910 0725 0747 Contreras Seymour MD /nt
--- NOTE | 2018-08-10 18:08 | NUR ---
ASSUMED CARE OF PT AT APPROX 0700. PT IS ALERT AND ORIENTED X4, MONITERED ON TELE AND ABLE TO MAINTAIN 02 SAT >90 ON RA. COMPLAINS OF MODERATE PAIN THAT IS RELIEVED WITH PRN PAIN MEDICATION NEEDED. DENIES SOA. EVEN NON LABORED BREATHING. CHEST TUBES REMOVED TODAY. TOLERATED WELL. ROBERT TO BE REMOVED. PT REQUESTS THIS BE DONE AFTER DINNER. PLAN FOR TRANSFER OFF UNIT TOMORROW. A LINE STILL IN PLACE PER DR ORDER. VSS BUT BP MEDS HELD THIS MORNING FOR LBP. PATIENT AND FAMILY HAVE BEEN UPDATED AND COMMUNICATE UNDERSTANDING. PT MAKING GOOD PROGRESS TOWARDS POC GOALS. ASSESSMENT CHARTED. CIWA CHARTED. NO MEDICATIONS NEEDED. WILL CONTINUE TO MONITOR.
[2018-08-11] VITALS (12 sets, daily range): BP systolic 98–133; BP diastolic 56–73
[2018-08-11 06:21] LABS: HEMATOCRIT 28.7 % (42.0-52.0); HEMOGLOBIN 10.2 gm/dL (14.0-18.0); MCH 32.8 pg (26.0-34.0); MCHC 35.5 g/dL (28.0-37.0); MCV 92.4 fL (80.0-100.0); RBC 3.11 mil/uL (4.50-6.00); RDW 13.3 % (10.5-14.5); WBC 10.4 thou/uL (4.0-11.0)
--- NOTE | 2018-08-11 06:22 | NUR ---
Pt rested well through the night with stable VS. PRN hydrocodones given for c/o chest "soreness" with desired effect achieved. SpO2 remain adequate on 2L of O2 and pt performing pulmonary toileting independently. Voided per urinal without difficulty and no BM observed. Am lab results pending, continue with POC.
[2018-08-11 06:30] LABS: CALCIUM 8.6 mg/dL (8.5-10.1); CREATININE 0.5 mg/dL (0.7-1.3); MAGNESIUM 2.2 mg/dL (1.8-2.4); POTASSIUM 3.2 mmol/L (3.5-5.1)
--- NOTE | 2018-08-11 13:30 | NUR ---
SHIFT SUMMARY: PT UP IN CHAIR X 2, BATH COMPLETED WITH OT/PT ASSIST, DC'D RADIAL DELONTE, INTRODUCER, IV FLUIDS. PT AMBULATED IN FRANCO WITH PT, REMAINED IN CHAIR FOR LUNCH, THEN BACK TO BED. 02 TITRATED TO ROOM AIR, COUGHING UP SECRETIONS & FOR PT EASE HE IS SUCTIONING WITH YANKAUER, LUNGS DIMINISHED THROUGHOUT DESPITE ALL THE ACTIVITY, DEEP BREATHING/COUGHING & USE OF INCENTIVE SPIROMETER. SR WITH FIRST DEGREE AV BLOCK AND BBB OR INTRINSIC ATRIAL BEAT WITH VENT PACING. TOLERATING MEALS, ADEQUATE URINE OUTPUT. BROTHER PRESENT PROVIDING SUPPORT.
--- NOTE | 2018-08-11 14:00 | NUR ---
Dr. NELSON NOTIFIED THEN PRESENT TO OBSERVE HEART RHYTHM- SR WITH FIRST DEGREE AV BLOCK AND BBB. PACER NOT SENSING. PT ASYMTOMATIC. PACER SPIKES DETERMINED TO BE ARTIFACT PER DR. NELSON.
--- NOTE | 2018-08-11 17:45 | NUR ---
PT RESTED INTERMITTENTLY IN AFTERNOON. VSS, NO CHANGES. AT 1728, CALLED REPORT TO TIA RANKIN. AT 1745, PT TRANSFERRED PER WHEELCHAIR TO CARDIAC CARE UNIT RM #[id number].
--- NOTE | 2018-08-11 18:42 | NUR ---
PT TRANSFERED TO THE UNIT FROM THE ICU - ASSESSMENT CHARTED - AUSTIN DIET AND FLUIDS. PT ORINETED TO ROOM AND BEDSPACE. PT STATES HE HAS DONE ALOT TODAY AND IS FEELING -ROUGH. SITTING UP IN CHAIR AT THE PRESENT TIME.
[2018-08-12 00:16] VITALS: BP 114/73
--- NOTE | 2018-08-12 04:44 | NUR ---
ASSUMED PT CARE AT 1900. VSS STABLE. PT A&0X4. PT STILL IN PAIN, HYDRCODONE GIVEN PRN. 2+ EDEMA IN RIGHT LEG, LUNGS ON AUSCULTATION LAST NIGHT WAS CLR-COARSE, BUT BECAME CLR AFTER BREATHING TX. I NOTICED WHAT APPEARS TO BE A BOIL ON HIS RIGHT EYELID THIS AM. ALL POST OP DRESSINGS ARE CDI. PT IS STABLE, NO FURTHER COMPLAINTS, JHE RESTED WELL ALL NIGHT, WILL CONTINUE TO MONITOR PER POC.
[2018-08-12 04:45] VITALS: BP 117/72
[2018-08-12 05:40] LABS: HEMATOCRIT 29.8 % (42.0-52.0); MCH 31.5 pg (26.0-34.0); MCHC 33.7 g/dL (28.0-37.0); MCV 93.4 fL (80.0-100.0); RBC 3.19 mil/uL (4.50-6.00); RDW 13.2 % (10.5-14.5); WBC 9.3 thou/uL (4.0-11.0)
[2018-08-12 05:48] LABS: CALCIUM 8.7 mg/dL (8.5-10.1); CREATININE 0.6 mg/dL (0.7-1.3); POTASSIUM 3.6 mmol/L (3.5-5.1)
[2018-08-12 07:35] VITALS: BP 123/71
[2018-08-12 12:05] VITALS: BP 110/66
[2018-08-12 16:00] VITALS: BP 109/59
--- NOTE | 2018-08-12 18:33 | NUR ---
END OF SHIFT: PATIENT ALERT AND ORIENTED X4, ON ROOM AIR WITH PRODUCTIVE COUGH. INSENTIVE SPIROMITOR COMPLETED THROUGHOUT THE DAY. TOLERATING DIET WELL, UP WITH STANDBY ASSISTANCE. PATIENT WALKED HALLWAY WITH PT x1. SURGICAL WOUNDS CLEANED AND DRESSINGS INTACT. PAIN MILDLY CONTROLLED WITH MEDICATION. NO SIGNS OF ACUTE DISTRESS NOTED AT THIS TIME. WILL CONTINUE TO MONITOR.
[2018-08-12 19:43] VITALS: BP 100/62
--- NOTE | 2018-08-13 03:41 | NUR ---
PT ALERT AND ORIENTED. STERNUM PAIN CONTROLLED WITH MEDICATIONS. NO C/O CHEST PAIN. VITALS STABLE. NO N/V/D. PRODUCTIVE COUGH. PT USING INCENTIVE SPIROMETER. COURSE CRACKLES IN THE LEFT LUNG . ANTICIPATED TO DC TOMORROW DEPENDING ON ACTIVITY WITH PT/OT. WILL CONTINUE TO MONITOR.
[2018-08-13 07:46] VITALS: BP 99/55
[2018-08-13 09:50] VITALS: BP 99/55
[2018-08-13 09:57] VITALS: BP 99/55
--- NOTE | 2018-08-13 10:17 | NUR ---
Followup; reviewed cardiac diet with pt and general healthy eating with mild elevation in BG with A1C of 6.7. Started on metformin. Pt denied any hx of diabetes. Will discuss with nursing. Hoping to go home today
[2018-08-13 12:24] VITALS: BP 95/48
[2018-08-13] MEDS ORDERED: ATORVASTATIN CA40 MG PO (14:34)
[2018-08-13] MEDS ORDERED: LISINOPRIL10 MG PO (14:37)
[2018-08-13] MEDS ORDERED: HYDROCODON-ACE1 EAC7 PO (14:38)
[2018-08-13] MEDS ORDERED: GLUCOPHAGE500 MG PO (14:39)
[2018-08-13] MEDS ORDERED: VITAMIN B-1100 M2 PO (14:39)
--- NOTE | 2018-08-13 15:26 | NUR ---
patient to dc home with no needs from casemt. sp with therapy who reports patients brother will be staying with him per patient.
[2018-08-13 16:51] VITALS: BP 99/55
[2018-08-13 16:54] VITALS: BP 99/55
== END 2018-08-13 17:54 | disposition home or self-care (01) | DRG 235 ==
LOC: PRE → TBA 05:22 → ICU 05:22 → PRE 05:43 → ICU 14:07 → PRE 14:32 → 2N 08-11 18:00
PROVIDERS: Internal Medicine; ADMIT Surgery Vascular Surgery
DX: I25.119 Atherosclerotic heart disease of native coronary artery with unspecified angina pectoris (principal); J96.01 Acute respiratory failure with hypoxia; G92 Toxic encephalopathy; I10 Essential (primary) hypertension; E78.5 Hyperlipidemia, unspecified; E11.51 Type 2 diabetes mellitus with diabetic peripheral angiopathy without gangrene; F17.210 Nicotine dependence, cigarettes, uncomplicated; I45.9 Conduction disorder, unspecified; I35.0 Nonrheumatic aortic (valve) stenosis; J44.9 Chronic obstructive pulmonary disease, unspecified; F10.10 Alcohol abuse, uncomplicated; D72.829 Elevated white blood cell count, unspecified; D69.6 Thrombocytopenia, unspecified; E83.39 Other disorders of phosphorus metabolism; R41.0 Disorientation, unspecified; Z95.0 Presence of cardiac pacemaker; Z86.73 Personal history of transient ischemic attack (TIA), and cerebral infarction without residual deficits; Z82.49 Family history of ischemic heart disease and other diseases of the circulatory system; Z83.3 Family history of diabetes mellitus; Z79.82 Long term (current) use of aspirin; Z79.899 Other long term (current) drug therapy
CPT/HCPCS: 10078; 10081; 47000; 47001; 47002; 47297; 48888; 50010; 50249; 50409; 50456; 50498; 50668; 51301; 52131; 52259; 52314; 53327; 53358; 54118; 56524; 56525; 56526; 56527; 56528; 56531; 56534; 56668; 56760; 56898; 57093; 62110; 62950; 65003; 65020; 65047; 65090; 65120; 65135; 83006

== ENCOUNTER 2018-08-29 12:37 | Observation (INO) | payer BC ==
[~2018-08-29] VITALS: Ht 177.8 cm; Wt 83.0 kg
[~2018-08-29 12:37] MED LIST changes: +ATORVASTATIN CA40 MG PO; +GLUCOPHAGE500 MG PO; +HYDROCODON-ACE1 EAC7 PO; +VITAMIN B-1100 M2 PO
[2018-08-29 14:15] VITALS: BP 90/53
[2018-08-29 17:06] LABS: HEMATOCRIT 33.3 % (42.0-52.0); HEMOGLOBIN 11.4 gm/dL (14.0-18.0); MCH 30.5 pg (26.0-34.0); MCHC 34.2 g/dL (28.0-37.0); MCV 89.2 fL (80.0-100.0); PLATELET COUNT 257 thou/uL (150-400); RBC 3.73 mil/uL (4.50-6.00); RDW 14.1 % (10.5-14.5); WBC 8.5 thou/uL (4.0-11.0)
[2018-08-29 17:27] LABS: ABSOLUTE NEUTROPHILS 5.4 thou/uL (1.4-8.2); ANISOCYTOSIS 1+
--- NOTE | 2018-08-29 20:25 | NUR ---
Pt is a direct admit of Dr. Seymour. IV abx started. Wound culture collected and sent to the lab. Seen by the MD, diet is well tolerated. No issues or complaints identified.
[2018-08-29 20:52] VITALS: BP 103/59
[2018-08-30 02:45] VITALS: BP 120/66
[2018-08-30 07:20] VITALS: BP 122/68
--- NOTE | 2018-08-30 08:07 | NUR ---
ASSUMED CARE AT 1900. PT SLEPT WELL. VITAL SIGNS STABLE. NO C/O OF NAUSEA, V/D. ON ABX FOR CELLULITIS. WILL CONTINUE TO FOLLOW POC.
[2018-08-30 08:38] VITALS: BP 106/78
--- NOTE | 2018-08-30 10:49 | NUR ---
Pt stable this am. No issues reported nor any verbalization of any concerns. Pt is now beibg transferred to room 226.l
[2018-08-30 11:10] VITALS: BP 102/64
--- NOTE | 2018-08-30 11:18 | NUR ---
PATIENT ARRIVED AT SENIOR SUITES AT 1100 TO ROOM 226, FROM 4 WEST ROOM 458.PATIENT WAS ORIENTED TO ROOM.CALL LIGHT, PHONE, AND PERSONAL BELONGINGS WITHIN REACH. CHART WAS BROUGHT DOWN.
[2018-08-30 14:32] VITALS: BP 102/64
--- NOTE | 2018-09-01 11:51 | H ---
[facility] [place] [address] HISTORY AND PHYSICAL Name: ERLIN ANGELES Room #: 226-P [facility] Arti Tyler#: [id number] Admission: 08/29/18 Attend Phys: Contreras Seymour MD Discharge: 08/30/18 Date of : 55 Report #: [id number] THIS REPORT FOR: //name// CC: Contreras Navarro DATE OF SERVICE: 08/29/2018 HISTORY OF PRESENT ILLNESS: We admitted the patient for treatment of a right lower extremity cellulitis. The patient has a history of coronary artery bypass on 08/07/2018. The patient had a somewhat complicated convalescence with delirium early on, pulmonary dysfunction and somewhat prolonged stay in the intensive care unit. Ultimately, the patient did well and was discharged in satisfactory condition on 08/13/2018. We saw the patient in the office last week for cellulitis of the anterior right lower extremity. An incision was opened and some old serosanguineous fluid was drained. The wound was packed and the patient was treated with outpatient oral antibiotics. The patient felt that he did not improve, although there was no history of fever or chills at home, the patient had persistent cellulitis that did not show much progress. As such, a decision was made to bring the patient into the hospitalist for proper wound cultures, dressing changes, and IV antibiotics. PAST MEDICAL HISTORY: Includes coronary artery disease with coronary bypass as mentioned, the patient also has COPD and history of alcohol use. MEDICATIONS: At home includes the oral Keflex that we had prescribed, albuterol, Plavix, atorvastatin, metoprolol, lisinopril, aspirin, gabapentin, Xanax, metformin, vitamins and iron. ALLERGIES: The patient denies allergies. FAMILY HISTORY: Not significant for precocious coronary artery disease. SOCIAL HISTORY: Reveals the patient has used tobacco and alcohol in the past. REVIEW OF SYSTEMS: CONSTITUTIONAL: The patient denies fever, chills. HEENT: No headache. No eye pain. No visual change. No hearing change. No nasal discharge. No sore throat. PULMONARY: Chronic cough with some sputum production. CARDIOVASCULAR: No current problems with chest pain or palpitations. ABDOMEN: No nausea, vomiting, diarrhea or blood. GENITOURINARY: No dysuria or blood. MUSCULOSKELETAL: No bone or joint discomfort. There is pain in the [facility] [address] [place] [address] HISTORY AND PHYSICAL Name: ERLIN ANGELES Room #: 226-P [facility] Arti Tyler#: [id number] Admission: 08/29/18 Attend Phys: Contreras Seymour MD Discharge: 08/30/18 Date of : 55 Report #: [id number] right lower extremity with skin changes consistent with cellulitis. SKIN: Otherwise shows no rash. PSYCHIATRIC: The patient does have anxiety. HEMATOLOGIC: No anemia. No unusual swelling. PHYSICAL EXAMINATION: GENERAL: The patient is alert and oriented. VITAL SIGNS: Blood pressure 102/64, heart rate 66, temperature 36.6, O2 sat 100% on room air. HEENT: No scleral icterus, no arcus. NECK: No mass, no bruit. CHEST: Increased AP diameter, decreased breath sounds at bases. HEART: Rhythm regular. ABDOMEN: Soft. EXTREMITIES: No clubbing, cyanosis or edema. We do note the cellulitis anterior right lower extremity below the knee with some swelling. IMPRESSION: The patient has cellulitis, right lower extremity. I have taken the precautions of admitting him for antibiotic treatment and cultures. Based on progress in the hospital, a decision will be made for either open drainage with wound VAC placement or discharge on current treatment. All of this was discussed with the patient, who understands and agrees with this approach. <ELECTRONICALLY SIGNED> By: Contreras Seymour MD 09/01/18 1151 1438 1453 Contreras Seymour MD /nt
== END 2018-08-30 16:08 | disposition home or self-care (01) ==
LOC: 4W 12:37 → SICU 08-30 10:59
PROVIDERS: ADMIT Surgery Vascular Surgery
DX: L03.115 Cellulitis of right lower limb (principal); I25.10 Atherosclerotic heart disease of native coronary artery without angina pectoris; F32.9 Major depressive disorder, single episode, unspecified; I24.9 Acute ischemic heart disease, unspecified; I11.9 Hypertensive heart disease without heart failure; Z86.73 Personal history of transient ischemic attack (TIA), and cerebral infarction without residual deficits; Z79.899 Other long term (current) drug therapy
CPT/HCPCS: 10047

== ENCOUNTER 2019-01-09 09:06 | Observation (INO) | payer BC ==
[~2019-01-09] VITALS: Ht 180.3 cm; Wt 84.8 kg
[2019-01-09] VITALS (11 sets, daily range): BP systolic 103–161; BP diastolic 43–74
[2019-01-09 09:42] LABS: HEMATOCRIT 52.8 % (42.0-52.0); HEMOGLOBIN 17.9 gm/dL (14.0-18.0); MCH 29.7 pg (26.0-34.0); MCHC 33.9 g/dL (28.0-37.0); MCV 87.7 fL (80.0-100.0); RBC 6.01 mil/uL (4.50-6.00); RDW 17.1 % (10.5-14.5); WBC 7.5 thou/uL (4.0-11.0)
[2019-01-09 09:48] LABS: CALCIUM 9.5 mg/dL (8.5-10.1); CREATININE 0.8 mg/dL (0.7-1.3); POTASSIUM 4.3 mmol/L (3.5-5.1)
--- NOTE | 2019-01-09 18:28 | NUR ---
[facility]. AV PACED ON THE MONITOR, AND VSS. ADMISION COMPLETED AND POC INTIATED. LT GRION INCISION D/C/I AND PATIENT UNDERSTANDS POST PROCEDURE INSTRUCTION AND WILL CONTINUE TO MONITOR PATIENT.
[2019-01-10 00:42] VITALS: BP 113/57
[2019-01-10 04:00] VITALS: BP 105/66
--- NOTE | 2019-01-10 04:38 | NUR ---
PATIENT CARES WERE ASSUMED AT SHIFT CHANGE. PATIENT WAS ASSESSED AND MEDS WERE PASSED. PATIENT COMPLETED HIS BED REST ORDERS. PATIENT UP WITH STAND BY THROUGH THE NIGHT. HOURLY ROUNDS WERE DONE. THE BED IS IN A LOW AND LOCKED POSITION.
[2019-01-10 08:42] VITALS: BP 95/58
[2019-01-10 09:51] VITALS: BP 95/58
--- NOTE | 2019-01-10 10:04 | NUR ---
ASSUMED CARE AT SHIFT CHANGE, ALERT AND ORIENTED X4. AV PACED ON THE MONITOR AND VSS. DISCHARGE AND MEDICATION INSTRUCTION GIVEN TO PATIENT BY AYALA SIDHU. PATIENT STATED THAT HE UNDERSTOOD THE INSTRUCTION GIVEN TO HIM.
== END 2019-01-10 10:51 | disposition home or self-care (01) ==
LOC: SPEC 09:06 → 2N 16:42 → SPEC 16:43 → 2N 16:43 → ENTRNSPT 01-10 10:14 → EDTRNSPTSTS 01-10 10:16 → 2N 01-10 10:51
PROVIDERS: ADMIT Nuclear Medicine Nuclear Cardiology
DX: E11.51 Type 2 diabetes mellitus with diabetic peripheral angiopathy without gangrene (principal); E78.5 Hyperlipidemia, unspecified; F17.200 Nicotine dependence, unspecified, uncomplicated
CPT/HCPCS: 10081

== ENCOUNTER 2019-02-08 05:18 | Inpatient (IN) | payer BC ==
[2019-01-31 10:34] LABS: ABSOLUTE NEUTROPHILS 5.6 thou/uL (1.4-8.2); BASOPHILS 0.4 % (0.0-2.0); EOSINOPHILS 0.5 % (0.0-3.0); HEMOGLOBIN 15.8 gm/dL (14.0-18.0); LYMPHOCYTES 20.7 % (24.0-44.0); MCH 30.1 pg (26.0-34.0); MCHC 34.4 g/dL (28.0-37.0); MCV 87.7 fL (80.0-100.0); MONOCYTES 7.8 % (1.0-8.0); PLATELET COUNT 159 thou/uL (150-400); POLYS 70.6 % (36.0-66.0); RBC 5.25 mil/uL (4.50-6.00); WBC 7.9 thou/uL (4.0-11.0)
[2019-01-31 10:44] LABS: CALCIUM 9.6 mg/dL (8.5-10.1); CREATININE 0.6 mg/dL (0.7-1.3); POTASSIUM 4.5 mmol/L (3.5-5.1); TOTAL BILIRUBIN 1.4 mg/dL (<0.1-1.0); TOTAL PROTEIN 7.6 g/dL (6.4-8.2)
[2019-01-31 10:45] LABS: APTT 38.5 Seconds (24.5-32.8); PROTIME 10.9 Seconds (9.3-11.4)
[2019-01-31 11:48] LABS: URINE BLOOD TRACE (Negative); URINE CLARITY CLEAR; URINE COLOR YELLOW; URINE GLUCOSE-RANDOM* NEGATIVE (Negative); URINE KETONES 1+ (Negative); URINE LEUKOCYTES NEGATIVE (Negative); URINE NITRITE NEGATIVE (Negative); URINE PROTEIN (DIPSTICK) NEGATIVE (Negative); URINE SPECIFIC GRAVITY 1.025 (1.005-1.035); URINE UROBILINOGEN 0.2 E.U./dl (0.2-1.0)
[2019-01-31 11:50] LABS: ICTOTEST (BILI CONFIRMATORY) Negative (Negative); URINE BILIRUBIN NEGATIVE (Negative)
--- NOTE | 2019-02-03 17:58 | EKG ---
[place] [address] [facility] [place] [address] ELECTROCARDIOGRAM REPORT Name: ERLIN ANGELES Room #: PRE IN ..#: [id number] ������������������ Admission: ������������������ Attend Phys: Contreras Seymour MD Discharge: ������������������ Date of : 55 Report #: [id number] ����������������������������������������������������������������� [id number] THIS REPORT FOR: //name// [facility] Test Date: 2019-01-31 Test Time: 10:30:35 Pat Name: ERLIN ANGELES Department: Room: Gender: Fitness Coordinator: jill : 1955 Requested By: Contreras Seymour Order Number: [id number] MD: Nabor Young Measurements Intervals Unity Rate: 70 P: -1 WY: 302 QRS: -62 QRSD: 188 T: 104 QT: 501 QTc: 541 Interpretive Statements Sinus rhythm Prolonged WY interval Probable left atrial enlargement Left bundle branch block Compared to ECG 08/08/2018 07:49:43 no significant change was found Electronically Signed On 02-03-2019 17:58:13 CDT by Nabor Young [email or web address] ��������������������������������������������� <ELECTRONICALLY SIGNED> ���������������������������������������� By: Nabor Young MD, [facility] ��������������������������������������������� 02/03/19 1758 1030 1030 Nabor Young MD, FAC /EPI
[2019-02-08] VITALS (23 sets, daily range): BP systolic 98–141; BP diastolic 37–73
[~2019-02-08] VITALS: Ht 180.3 cm; Wt 78.0 kg
[~2019-02-08 05:18] MED LIST changes: +ASPIRIN325 PO; +METFORMIN HCL500 MG PO; +VITAMIN B-121000 MC3 PO; +XARELTO20 MG PO
[2019-02-09] VITALS (10 sets, daily range): BP systolic 81–126; BP diastolic 33–67
[2019-02-09 06:06] LABS: HEMATOCRIT 40.6 % (42.0-52.0); HEMOGLOBIN 13.7 gm/dL (14.0-18.0); MCHC 33.8 g/dL (28.0-37.0); MCV 88.6 fL (80.0-100.0); RBC 4.58 mil/uL (4.50-6.00); RDW 15.5 % (10.5-14.5); WBC 11.5 thou/uL (4.0-11.0)
[2019-02-09 06:15] LABS: CALCIUM 8.8 mg/dL (8.5-10.1); CREATININE 0.6 mg/dL (0.7-1.3); POTASSIUM 4.3 mmol/L (3.5-5.1)
--- NOTE | 2019-02-09 07:00 | NUR ---
Assumed care at 2300 last pm and pt slept well through the night with stable VS. PRN fentanyl and hydrocodones given for c/o left foot and groin pain with desired effects achieved. SpO2 adequate on RA and urine output adequate for the shift. Am lab results noted, continue with POC.
--- NOTE | 2019-02-09 18:38 | NUR ---
PT ALERT AND ORIENTED X4. REPORTS PAIN IN LEFT FOOT AND LEFT GROIN INCISION. FENT/HYDROCODONE GIVEN PRN. TOES TO LEFT FOOT SLIGHTLY PURPLE/WARM. PT REPORTS THAT HE HAS MORE FEELING IN TOES AND PURPLE COLOR IS LESSENING. AMBULATING IN HALLWAY AND UP TO CHAIR TODAY. RAD DELONTE DISCONTINUED AND PRESSURES APPLIED X20 MINUTES. USING I.S. UP TO 2250ML. LEFT GROIN INCISION WITH WOUND VAC INTACT. ORDER TO TRANSFER TO CCU. REPORT GIVEN TO CRYSTAL WEBER.
--- NOTE | 2019-02-09 18:42 | NUR ---
PT ARRIVED AROUND 1800 TX FROM ICU, HAS WOUND VAC TO LEFT GROIN FROM ENDARECTOMY TWO DAYS AGO. A&0X4, ICU REPORTS THAT PT HAD ROBERT REMOVED AROUND 11:00 AND HASN'T HAD URINATED SINCE THEN. WES STATED HE WAS BLADDER SCANNED AND HAD 360ML. PT STATES HE DOESN'T USUALLY HAVE AN ISSUE WITH THIS AND SAID JUST TALKING ABOUT IT MADE ME NOT WANT TO URINATE. WILL GIVE REPORT TO CONTINUE TO WATCH PT AND ENSURE HIS I&OS. ENCOURAGED HIM TO USE HIS CALL LIGHT FOR ANY NEEDS
--- NOTE | 2019-02-09 18:46 | NUR ---
ROBERT DC AT 1100. PT HAS NOT BEEN ABLE TO VOID. BLADDER SCAN DONE AT 1700 360ML. TO REASSESS IN 2 HRS PER PROTOCOL.
--- NOTE | 2019-02-09 18:47 | NUR ---
PT'S IN THE MIDST OF URINATING NOW WHILE I SCAN HIS PAIN MEDICATION
[2019-02-10 00:20] VITALS: BP 136/66
[2019-02-10 05:01] VITALS: BP 132/70
[2019-02-10 07:35] VITALS: BP 139/67
--- NOTE | 2019-02-10 08:23 | NUR ---
ASSUME CARE 1900. PT/VITALS STABLE. INTERMITTENT INCISIONAL PAIN. UP WITH ASISTANCE. TOLERATES ACTIVITY WELL. LEFT GROIN WOUND VAC INTACT. ASSESSMETN CHARTED. PROGRESSING WELL WITH POC. ADEQUATE REST NOTED. SR ON MONITOR. WILL CONTINUE TO MONITOR AND FOLLOW WITH THE PATIENT
[2019-02-10] MEDS ORDERED: HYDROCODON-ACE1 EAC7 PO (09:39)
--- NOTE | 2019-02-10 10:38 | NUR ---
D/C NOTED, PT'S RIDE WILL BE HERE BETWEEN 12-1230, IV AND TELE WILL BE REMOVED, BELONGINGS PACKED AND STAFF WILL ESCORT HIM IN W/C ON HIS WAY OUT W/SPOUSE. HAS ALREADY HAD WOUND VAC REPLACED WITH SMALL MACHINE. PT DELIGHTED W/ ALL HIS STAFF'S CARE PER HIS REPORT (ICU AND CCU). ENCOURAGED HIM IN THE INTERIM TO CONTINUE TO USE CALL LIGHT FOR ANY NEEDS
[2019-02-10 10:47] VITALS: BP 139/67
[2019-02-10 10:50] VITALS: BP 139/67
--- NOTE | 2019-02-12 10:07 | PATH ---
[facility] [address] [place] [address] PATHOLOGY RPT PROCEDURE Name: BRIDGETTEERLIN ERICK Room #: 203-P DIS IN M.R.#: [id number] ������������������ Admission: 02/08/19 ������������������ Date of : 55 Discharge: 02/10/19 Report #: [id number] Path Case #: [id number] [facility] Accession Number: [id number] . 01 Material submitted: . artery - LEFT FEMORAL ARTERY PLAQUE. Modifiers: left, femoral . 01 Clinical history: . Peripheral artery disease. . 02 Diagnosis: Left femoral artery plaque, femoral endarterectomy: - Fragments of calcified sclerotic material along with vessel wall showing extensive myxoid degeneration. (IUV/db; 02/11/2019) LBQ/02/11/2019 . 02 Electronically signed: . Macy Yan MD, Pathologist NPI- [id number] . 01 Gross description: . Received in formalin labeled "Erlin Simon, left femoral artery plaque" is a 5.0 x 2.6 x 1.0 cm aggregate of vogel-white membranous tissue. Approximately 90% of the specimen is comprised of calcifications. [employer] Insurance Advisor sections are submitted in cassette A1 following decalcification. ([facility]; 02/10/2019) SYC/SYC . 02 Pathologist provided ICD-10: I70.202 . 02 CPT . 858906, [id number] Specimen Comment: A courtesy copy of this report has been sent to Specimen Comment: [phone], , . Specimen Comment: Report sent to ,DR AVNCE / DR ROSS Performed at: [address], [place] [id number] MD Jorge Pate MD Phone: [phone] Performed at: [address] [id number] MD Macy Yan MD Phone: [phone]
--- NOTE | 2019-02-14 14:13 | O ---
[facility] [place] [address] OPERATIVE REPORT Name: ERLIN ANGELES Room #: 203-P [facility] IN M.R.#: [id number] Admission: 02/08/19 ������������������ Attend Phys: Contreras Seymour MD Discharge: 02/10/19 ������������������ Date of : 55 Report #: [id number] THIS REPORT FOR: //name// CC: Ted [facility]uscharlette [facility] DATE OF SERVICE: 02/08/2019 PREOPERATIVE DIAGNOSIS: Left femoral artery occlusive disease. POSTOPERATIVE DIAGNOSIS: Left femoral artery occlusive disease. OPERATION: Left femoral endarterectomy. SURGEON: Contreras Seymour MD AUTO BODY SHOP MANAGER: DAVID Bullock. ANESTHESIA: General. INDICATIONS: The patient is a patient known to us from his coronary artery bypass surgery in August or so. The patient has had important left lower extremity claudication and rest pain related to subtotal occlusion of the left common femoral artery. The left superficial femoral artery is totally occluded and flow in the profunda is by collaterals. FINDINGS AND TECHNIQUE: After general anesthesia was established, an incision was made in the left groin to expose the common deep and superficial femoral artery, the common femoral was controlled at or above the inguinal ligament where it was soft and a good length of the profunda was exposed. 10,000 units of heparin were given. The femoral vessels were occluded. A femoral arteriotomy was made. The endarterectomy was performed. We tried probing the superficial femoral artery with a Kevin catheter, but there was no lumen, the femoral artery itself was plugged with a calcified plaque. The endarterectomy was performed without creating a distal flap. Tacking sutures were placed distally and proximally. The neointima was inspected and all loose debris was removed. The long arteriotomy, which extended down onto the deep femoral artery, was closed with a pericardial patch and running Prolene. Prior to finishing the closure, the vessels were backbled. Flow was reestablished. Hemostasis was ascertained. Protamine was given. [address] [address] OPERATIVE REPORT Name: ERLIN ANGELES Room #: 203-P [facility] IN M.R.#: [id number] Admission: 02/08/19 ������������������ Attend Phys: Contreras Seymour MD Discharge: 02/10/19 ������������������ Date of : 55 Report #: [id number] When hemostasis was satisfactory, the wound was closed in layers. Prior to finishing, we used the Doppler to interrogate the deep femoral and a good signal was found. The wound was closed in layers. The patient was taken to the recovery area in good condition. All counts reported as correct. The foot was pink and red when we were finished with surgery and looked much better perfused than it did at the outset. The patient tolerated the procedure well. ��������������������������������������������� <ELECTRONICALLY SIGNED> ���������������������������������������� By: Contreras Seymour MD ��������������������������������������������� 02/14/19 1413 1038 1106 Contreras Seymour MD /nt
== END 2019-02-10 12:12 | disposition home or self-care (01) | DRG 253 ==
LOC: 2N 05:18 → ICU 05:18 → TBA 05:18 → PRE 05:54 → EDSTATUS 08:51 → PRE 08:55 → OR 09:13 → PRE 09:17 → OR 09:45 → PRE 09:59 → OR 11:22 → ICU 14:23 → 2N 02-09 18:10
PROVIDERS: Physician Assistant; ADMIT Surgery Vascular Surgery
PROC: 04UL07Z Supplement Left Femoral Artery with Autologous Tissue Substitute, Open Approach (ICD-10-PCS; principal; 2019-02-08)
PROC: 04CL0ZZ Extirpation of Matter from Left Femoral Artery, Open Approach (ICD-10-PCS; principal; 2019-02-08)
DX: I70.202 Unspecified atherosclerosis of native arteries of extremities, left leg (principal); E87.1 Hypo-osmolality and hyponatremia; I70.8 Atherosclerosis of other arteries; E11.9 Type 2 diabetes mellitus without complications; J44.9 Chronic obstructive pulmonary disease, unspecified; E78.5 Hyperlipidemia, unspecified; F17.210 Nicotine dependence, cigarettes, uncomplicated; I95.9 Hypotension, unspecified; Z95.1 Presence of aortocoronary bypass graft; Z79.1 Long term (current) use of non-steroidal anti-inflammatories (NSAID); Z86.73 Personal history of transient ischemic attack (TIA), and cerebral infarction without residual deficits; Z95.5 Presence of coronary angioplasty implant and graft; Z83.3 Family history of diabetes mellitus; Z82.49 Family history of ischemic heart disease and other diseases of the circulatory system; Z79.82 Long term (current) use of aspirin; Z79.84 Long term (current) use of oral hypoglycemic drugs; Z79.51 Long term (current) use of inhaled steroids; Z79.899 Other long term (current) drug therapy; Z71.6 Tobacco abuse counseling
CPT/HCPCS: 10204; 10797; 47375; 48888; 50010; 50101; 50386; 50455; 50643; 50953; 51165; 51751; 52279; 54118; 56524; 56526; 56528; 56534; 56668; 56760; 57092; 57093; 62110; 62900; 65020; 65040; 65090; 70005

== ENCOUNTER → 2021-09-10 | Outpatient (CLI) | payer OTHER | LOC: SJCVC 13:30 | PROVIDERS: ATTEND Internal Medicine | DX: R94.31 Abnormal electrocardiogram [ECG] [EKG] (principal); I25.119 Atherosclerotic heart disease of native coronary artery with unspecified angina pectoris; I10 Essential (primary) hypertension; E11.9 Type 2 diabetes mellitus without complications; E78.5 Hyperlipidemia, unspecified; I73.9 Peripheral vascular disease, unspecified; J44.9 Chronic obstructive pulmonary disease, unspecified; E78.00 Pure hypercholesterolemia, unspecified; G62.9 Polyneuropathy, unspecified; F17.200 Nicotine dependence, unspecified, uncomplicated; Z79.899 Other long term (current) drug therapy; Z72.89 Other problems related to lifestyle ==